=== PATIENT | female | born 1985 | race African-American/Black ===

== ENCOUNTER 2017-03-29 12:17 | Emergency (ER) | payer SELFPAY ==
[~2017-03-29] VITALS: Ht 182.9 cm; Wt 64.4 kg
[~2017-03-29 12:17] MED LIST: DOCU-109 PO; OLAN2.5T3 PO; ONDA4TAB10 SL; OXYC10TA45 PO; OXYC1TAB9 PO; POLY17PO3 PO; PRED20TA PO; PROAIR HFA8.5 GM INH; WARF7.5T48 PO
[2017-03-29 12:37] VITALS: BP 106/66
[2017-03-29] MEDS ORDERED: SULF1TAB24 PO (13:22)
--- NOTE | 2017-03-29 13:22 | PHYS DOC ---
Past Medical History Past Medical History: DVT Additional Past Medical Histor: endometriosis Past Surgical History: Other Additional Past Surgical Histo: laparoscopy Alcohol Use: Heavy Drug Use: Cocaine, Marijuana Adult General Chief Complaint Chief Complaint: INSECT BITE [facility] HPI Patient is a 31 year old female presents emergency department stating that she has an area on her left lower thigh area that is red warm swollen and tender. She states that she was bit by some type of insect. Approximately 2 days ago she developed this area with white drainage coming from it. She is unsure when her last tetanus immunization occurred. She denies any fever, chills or any nausea vomiting. She denies any numbness or tingling down to her lower extremity. She denies any difficulty with ambulation. She has not taken anything more applied anything to the area. Review of Systems Review of Systems Constitutional: Denies fever or chills [] Eyes: Denies change in visual acuity, redness, or eye pain [] HENT: Denies nasal congestion or sore throat [] Respiratory: Denies cough or shortness of breath [] Cardiovascular: No additional information not addressed in HPI [] GI: Denies abdominal pain, nausea, vomiting, bloody stools or diarrhea [] : Denies dysuria or hematuria [] Musculoskeletal: Denies back pain or joint pain [] Integument: Denies rash or skin lesions complaining of the bite to the left lower thigh area that is red warm swollen and tender Neurologic: Denies headache, focal weakness or sensory changes [] Endocrine: Denies polyuria or polydipsia [] Allergies Allergies Allergies Coded Allergies Type Severity Reaction Last Updated Verified mirtazapine Allergy Intermediate 09/10/15 Yes venlafaxine Allergy Intermediate rash 09/10/15 Yes Physical Exam Physical Exam Constitutional: Well developed, well nourished, no acute distress, non-toxic appearance. [] HENT: Normocephalic, atraumatic, bilateral external ears normal, oropharynx moist, no oral exudates, nose normal. [] Eyes: PERRLA, EOMI, conjunctiva normal, no discharge. [] Neck: Normal range of motion, no tenderness, supple, no stridor. [] Cardiovascular:Heart rate regular rhythm Lungs & Thorax: No respiratory distress noted. Skin: Warm, dry, no erythema, no rash. Patient with an area just slightly larger than half a dollar that is red warm swollen and tender with no drainage or discharge noted. It does appear to have some type of a bite in the middle. Back: No tenderness Extremities: No tenderness, no cyanosis, no clubbing, ROM intact, no edema. [] Neurologic: Alert and oriented X 3, normal motor function, normal sensory function, no focal deficits noted. [] Psychologic: Affect normal, judgement normal, mood normal. [] Current Patient Data Vital Signs Vital Signs Date Time Temp Pulse Resp B/P (MAP) Pulse Ox O2 Delivery O2 Flow Rate FiO2 03/29/17 12:37 97.7 65 20 100 Room Air 97.7 EKG EKG [] Radiology/Procedures Radiology/Procedures [] Course & Med Decision Making Course & Med Decision Making Pertinent Labs and Imaging studies reviewed. (See chart for details) Your reynaldo spoke with patient regards to keeping the area clean and dry. Clean the site twice a day with soap and water and apply antibiotic ointment. Also will place patient on Bactrim 1 tablet twice day for the next 10 days. Recommended following up with her primary care return back in the next 3-5 days. Signs symptoms to return back to emergency department as been provided. Patient agrees with discharge instructions treatment regimens and follow-up recommendations. [] Dragon Disclaimer Dragon Disclaimer This electronic medical record was generated, in whole or in part, using a voice recognition dictation system. Departure Departure Impression: Primary Impression: Cellulitis Disposition: 01 HOME, SELF-CARE Condition: STABLE Referrals: NO PCP (PCP) Patient Instructions: Cellulitis, [id number] Additional Instructions: Keep the area clean and dry. Clean the site twice daily soap and water and apply antibiotic ointment to the area. Tylenol or ibuprofen for pain and discomfort. Antibiotics as prescribed. Follow-up to primary care physician or return back here in 3-5 days if the areas do not look improved. Return back to emergency prior signs symptoms become worse. Scripts Sulfamethoxazole/Trimethoprim (BACTRIM DS TABLET) 1 Each Tablet 1 TAB PO BID, #20 TAB Prov: MAHOGANY VILA APRN 03/29/17 MAHOGANY VILA APRN Mar 29, 2017 13:22
[2017-03-29] MEDS ORDERED: DIPHTH,PERTUSS(ACELL),TET TOX 0.5 ML DISP.SYRIN. VAX IM ONE (13:30)
== END 2017-03-29 13:40 | disposition home or self-care (01) ==
LOC: ER 12:17
DX: L03.116 Cellulitis of left lower limb (principal); F12.10 Cannabis abuse, uncomplicated; F14.10 Cocaine abuse, uncomplicated; Z86.718 Personal history of other venous thrombosis and embolism; F10.10 Alcohol abuse, uncomplicated; Z88.8 Allergy status to other drugs, medicaments and biological substances; W57.XXXA Bitten or stung by nonvenomous insect and other nonvenomous arthropods, initial encounter; Y93.89 Activity, other specified; Y99.8 Other external cause status; Y92.89 Other specified places as the place of occurrence of the external cause
CPT/HCPCS: 90471; 90715; 99283-25

== ENCOUNTER 2018-04-28 21:41 | Emergency (ER) | payer SELFPAY ==
[~2018-04-28] VITALS: Ht 180.3 cm; Wt 70.8 kg
[~2018-04-28 21:41] MED LIST changes: +OXYC-411 PO; -OXYC1TAB9 PO; +SULF1TAB24 PO
[2018-04-28 22:00] VITALS: BP 115/77
== END 2018-04-29 00:14 | disposition left against medical advice (07) ==
LOC: ER 21:41
DX: S00.83XA Contusion of other part of head, initial encounter (principal); Z53.21 Procedure and treatment not carried out due to patient leaving prior to being seen by health care provider; X58.XXXA Exposure to other specified factors, initial encounter; Y93.89 Activity, other specified; Y92.89 Other specified places as the place of occurrence of the external cause; Y99.8 Other external cause status

== ENCOUNTER 2021-04-12 09:41 | Emergency (ER) | payer SELFPAY ==
[~2021-04-12] VITALS: Ht 170.2 cm; Wt 70.9 kg
[~2021-04-12 09:41] MED LIST changes: +ALBU2.5V8 INH; -OXYC-411 PO; -OXYC10TA45 PO; +OXYC10TA46 PO; +OXYC1TAB20 PO; -POLY17PO3 PO; +POLY17PO52 PO; -PROAIR HFA8.5 GM INH
[2021-04-12] MEDS ORDERED: ACETAMINOPHEN 325 MG TABLET. PO ONE (10:15)
[2021-04-12] MEDS ORDERED: IBUPROFEN 200 MG TABLET. PO ONE (10:15)
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
[2021-04-12 11:56] VITALS: BP 133/89
== END 2021-04-12 13:54 | disposition home or self-care (01) ==
LOC: ER 09:41
DX: R51.9 Headache, unspecified (principal); M54.2 Cervicalgia; G89.11 Acute pain due to trauma; F17.200 Nicotine dependence, unspecified, uncomplicated; F32.9 Major depressive disorder, single episode, unspecified; F41.9 Anxiety disorder, unspecified; Z86.718 Personal history of other venous thrombosis and embolism; Z88.8 Allergy status to other drugs, medicaments and biological substances; Y04.0XXA Assault by unarmed brawl or fight, initial encounter; Y93.89 Activity, other specified; Y92.89 Other specified places as the place of occurrence of the external cause; Y99.8 Other external cause status
CPT/HCPCS: 70450; 72125; 99285-25